=== PATIENT | male | born 1965 | race Caucasian/White ===

== ENCOUNTER 2019-05-27 18:09 | Inpatient (IN) | payer MEDICAID ==
[~2019-05-27] VITALS: Ht 177.8 cm; Wt 83.9 kg
[2019-05-27 18:12] VITALS: BP 140/87
--- NOTE | 2019-05-27 18:27 | NUR ---
PT AMBULATED TO ER BED 04
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
--- NOTE | 2019-05-27 18:33 | NUR ---
DENIES FEVER/CHILLS. TEMP 99.6 TEMPORAL @ TRIAGE. RECHECK ORAL 98.2 AT THIS TIME.
[2019-05-27] MEDS ORDERED: AMPICILLIN/SULBACTAM 3 GM in NACL 0.9% 100 ML IV ONE (18:35)
[2019-05-27] MEDS ORDERED: NACL 0.9% 1,000 ML IV ONE (18:35)
--- NOTE | 2019-05-27 18:36 | NUR ---
DR GOMEZ EVALUATING PT AT BEDSIDE
--- NOTE | 2019-05-27 18:42 | NUR ---
ASSISTANT SCIENTIST AT BEDSIDE
--- NOTE | 2019-05-27 18:42 | NUR ---
EMT AT BEDSIDE FOR EKG
[2019-05-27] MEDS ORDERED: AMPICILLIN/SULBACTAM 3 GM VIAL ONE ×2 (18:44→23:50)
--- NOTE | 2019-05-27 18:47 | NUR ---
XRAY AT BEDSIDE
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
[2019-05-27 19:03] LABS: BASOPHILS # (AUTO) 0.1 K/uL (0.00-0.22); BASOPHILS % (AUTO) 1.3 % (0.0-2.0); EOSINOPHILS # (AUTO) 0.4 K/uL (0-0.4); EOSINOPHILS % (AUTO) 3.9 % (0.0-4.0); HEMATOCRIT 41.8 % (36-52); HEMOGLOBIN 13.9 g/dL (12.0-18.0); LYMPHOCYTES # (AUTO) 1.4 K/uL (2.0-11.5); LYMPHOCYTES % (AUTO) 14.3 % (20.5-51.1); MEAN CORPUSCULAR HEMOGLOBIN 30 pg (27-31); MEAN CORPUSCULAR HGB CONC 33 g/dL (33-37); MEAN CORPUSCULAR VOLUME 88.9 fL (80-94); MONOCYTES # (AUTO) 0.8 K/uL (0.8-1.0); MONOCYTES % (AUTO) 8.6 % (1.7-9.3); NEUTROPHILS % (AUTO) 71.9 % (42.2-75.2); PLATELET COUNT (AUTO) 361 K/uL (140-450); RED CELL DISTRIBUTION WIDTH 14.6 % (11.6-13.7); WHITE BLOOD COUNT (AUTO) 9.7 K/uL (4.8-10.8)
[2019-05-27 19:11] LABS: ANION GAP 12.2 (8-16); CARBON DIOXIDE 30.8 mmol/L (21-32); CREATININE 1.3 mg/dL (0.6-1.3)
--- NOTE | 2019-05-27 19:13 | NUR ---
U/S TECH AT BEDSIDE
--- NOTE | 2019-05-27 20:03 | NUR ---
PT QUIETLY RESTING IN BED, WILL CONTINUE TO MONITOR, SIDERAIL X 1
--- NOTE | 2019-05-27 20:05 | NUR ---
Dr. Santana examining patient.
[2019-05-27] MEDS ORDERED: BACITRACIN OINT 500 UNITS/GM PKT TP ONE ×3 (20:11→20:15)
[2019-05-27] MEDS ORDERED: DOCUSATE SODIUM 100 MG GELCAP PO PRN (20:15)
[2019-05-27] MEDS ORDERED: ACETAMINOPHEN 325 MG TAB PO PRN (20:15)
[2019-05-27] MEDS ORDERED: HYDROcodone/APAP 5/325 MG 1 TAB TAB PO PRN (20:15)
[2019-05-27] MEDS ORDERED: MORPHINE SULFATE 2 MG/ML SYR IVP PRN (20:15)
[2019-05-27] MEDS ORDERED: ONDANSETRON 4 MG/2 ML VIAL IM/IVP PRN (20:15)
[2019-05-27 20:47] LABS: MAGNESIUM 1.6 mg/dL (1.8-2.4); THYROID STIMULATING HORMONE 1.82 uIU/mL (0.34-3.74)
[2019-05-27] MEDS ORDERED: MAGNESIUM OXIDE 400 MG TAB PO SCH (20:50)
[2019-05-27 20:51] LABS: PROTHROMBIN TIME 10.2 secs (10.8-13.4)
[2019-05-27 21:05] VITALS: BP 121/75
--- NOTE | 2019-05-27 21:05 | NUR ---
Patient will be admitted to care of DR BLANCO. Admited to MED SURG. Will go to room 119A. Belongings list completed. Report to MAKAYLA AGUILAR.
--- NOTE | 2019-05-27 21:05 | NUR ---
PATIENT ARRIVED FROM ED VIA WHEELCHAIR. RECEIVED REPORT FROM ER NURSE. PATIENT AWAKE, ALERT, AOX4. AMBULATORY. RESPIRATIONS EVEN AND UNLABORED. SKIN IS WARM AND DRY. WITH OPEN WOUND ON R ELBOW. DRESSING CLEAN, DRY, AND INTACT. WITH IV G 20 ON LEFT FA. VITAL SIGNS WERE STABLE. DENIES ANY PAIN OR DISCOMFORT AT THIS TIME. PATIENT ORIENTED TO ROOM. MRSA NARES SWAB TAKEN. KEPT COMFORTABLE. WILL CONTINUE TO MONITOR.
[2019-05-27] MEDS ORDERED: ALBUTEROL SULFATE/IPRATROPIU 3 ML SOL IH PRN (21:45)
[2019-05-27] MEDS: NACL 0.9% 1,000 ML IV SCH (21:47)
[2019-05-28] VITALS: BP 110/75
[2019-05-28] MEDS: AMPICILLIN/SULBACTAM 3 GM in NACL 0.9% 100 ML IV SCH ×5 (00:01→23:49)
--- NOTE | 2019-05-28 00:11 | NUR ---
ROUNDS DONE. PATIENT IN BED SLEEPING. NO SIGNS OF PAIN OR DISCOMFORT NOTED. IVF INFUSING WELL. CALL LIGHT WITHIN REACH. WILL CONTINUE TO MONITOR.
--- NOTE | 2019-05-28 02:13 | NUR ---
PATIENT IN BED SLEEPING. IVF INFUSING WELL. RESPIRATIONS EVEN AND UNLABORED. NO SIGNS OF PAIN OR DISCOMFORT. KEPT COMFORTABLE. CALL LIGHT WITHIN REACH. WILL CONTINUE TO MONITOR.
--- NOTE | 2019-05-28 04:06 | NUR ---
PATIENT IN BED SLEEPING. RESPIRATIONS EVEN AND UNLABORED. NO SIGNS AND SYMPTOMS OF DISTRESS NOTED. IVF INFUSING WELL. SAFETY MEASURES IN PLACE. CALL LIGHT WITHIN REACH. WILL CONTINUE TO MONITOR.
[2019-05-28] MEDS ORDERED: AMPICILLIN/SULBACTAM 3 GM VIAL ONE (05:16)
--- NOTE | 2019-05-28 05:27 | NUR ---
PATIENT IN BED SLEEPING. RESPIRATIONS EVEN AND UNLABORED. NO S/SX OF DISTRESS NOTED. SCHEDULED MEDICATION GIVEN ORDERED. SAFETY MEASURES IN PLACE. WILL CONTINUE TO MONITOR.
--- NOTE | 2019-05-28 06:06 | NUR ---
PATIENT HAS BEEN SCREENED AND CATEGORIZED MODERATE NUTRITION RISK. PATIENT WILL BE SEEN WITHIN 3-5 DAYS OF ADMISSION. 05/31/19-06/02/19 HAYDE LOVE MS, RDN
--- NOTE | 2019-05-28 07:13 | NUR ---
ENDORSED TO DAY SHIFT NURSE. PATIENT IN STABLE CONDITION.
--- NOTE | 2019-05-28 07:14 | NUR ---
RECEIVED REPORT FROM ASSESSMENT TECHNICIAN NURSE. AOX3, NO C/O PAIN, , NO SOB. WITH IV SITE 20G ON LFA, INTACT AND INFUSING WELL NS AT 60MLS/HR. RIGHT ELBOW DRESSING INTACT UNIVERSAL PRECAUTIONS IN PLACE. PT IN STABLE CONDITION
[2019-05-28 07:25] LABS: BASOPHILS # (AUTO) 0.1 K/uL (0.00-0.22); BASOPHILS % (AUTO) 1.2 % (0.0-2.0); EOSINOPHILS # (AUTO) 0.6 K/uL (0-0.4); EOSINOPHILS % (AUTO) 6.9 % (0.0-4.0); HEMATOCRIT 39.9 % (36-52); HEMOGLOBIN 13.4 g/dL (12.0-18.0); LYMPHOCYTES # (AUTO) 1.7 K/uL (2.0-11.5); LYMPHOCYTES % (AUTO) 20.1 % (20.5-51.1); MEAN CORPUSCULAR HEMOGLOBIN 30 pg (27-31); MEAN CORPUSCULAR HGB CONC 34 g/dL (33-37); MEAN CORPUSCULAR VOLUME 88.7 fL (80-94); MONOCYTES # (AUTO) 0.9 K/uL (0.8-1.0); MONOCYTES % (AUTO) 10.7 % (1.7-9.3); NEUTROPHILS # (AUTO) 5.3 K/uL (1.8-7.7); NEUTROPHILS % (AUTO) 61.1 % (42.2-75.2); PLATELET COUNT (AUTO) 313 K/uL (140-450); RED CELL DISTRIBUTION WIDTH 14.6 % (11.6-13.7); WHITE BLOOD COUNT (AUTO) 8.6 K/uL (4.8-10.8)
[2019-05-28 07:42] LABS: ANION GAP 10.2 (8-16); CARBON DIOXIDE 31.9 mmol/L (21-32); CREATININE 1.2 mg/dL (0.6-1.3); POTASSIUM 4.1 mmol/L (3.5-5.1)
[2019-05-28 08:00] VITALS: BP 123/76
--- NOTE | 2019-05-28 09:06 | NUR ---
DUE MORNING MEDS GIVEN. TOLERATED WELL.
[2019-05-28 09:16] LABS: APPEARANCE,URINE HAZY (CLEAR); BILIRUBIN,URINE NEGATIVE (NEGATIVE); BLOOD, URINE NEGATIVE (NEGATIVE); COLOR,URINE YELLOW (YELLOW); LEUKOCYTE ESTERASE ,URINE NEGATIVE (NEGATIVE); NITRITE, URINE NEGATIVE (NEGATIVE); UGLUCOSE NEGATIVE (NEGATIVE)
[2019-05-28 09:33] LABS: RBC,URINE 0-5 /HPF (0-5); WBC,URINE 0 /HPF (0-5)
[2019-05-28 09:35] LABS: YEAST,URINE Moderate /HPF (None Seen)
[2019-05-28 09:40] LABS: BARBITURATE, URINE NEG ng/ml (NEG <=200); BENZODIAZEPINE, URINE NEG ng/mL (NEG <=200); CANNABINOID, URINE NEG ng/mL (NEG <=50); COCAINE, URINE NEG ng/mL (NEG <=300); OPIATE, URINE NEG ng/mL (NEG <=2000); PHENCYCLIDINE SCREEN,URINE NEG ng/mL (NEG <=25)
--- NOTE | 2019-05-28 10:35 | NUR ---
PT IN BED ASLEEP. NO SOB. IV INFUSING WELL.
--- NOTE | 2019-05-28 11:21 | NUR ---
DUE UNASYN IVPB GIVEN ORDERED. INFUSING WELL. NO ADVERSE REACTIONS NOTED
[2019-05-28] MEDS: NACL 0.9% 1,000 ML IV SCH ×2 (12:55→17:23)
[2019-05-28] MEDS ORDERED: FLUCONAZOLE 100 MG/NS PREMIX 50 ML IV SCH (14:00)
--- NOTE | 2019-05-28 14:00 | NUR ---
WITH NEW ODER FOR DIFLUCAN IV. GIVEN ORDERED. INFUSING WELL.
[2019-05-28 16:00] VITALS: BP 125/52
--- NOTE | 2019-05-28 19:10 | NUR ---
ENDORSED TO AIRLINE STEWARDESS NURSE FOR CONTINUITY OF CARE. IN STABLE CONDITION
--- NOTE | 2019-05-28 19:11 | NUR ---
RECEIVED REPORT FROM DAY SHIFT NURSE. PATIENT IN BED AOX4. DENIES ANY PAIN OR DISTRESS. RESPIRATIONS EVEN AND UNLABORED. IV INTACT AND INFUSING WELL. DRESSING CLEAN AND INTACT. PLAN OF CARE DISCUSSED. PATIENT KEPT COMFORTABLE. WILL CONTINUE TO MONITOR.
--- NOTE | 2019-05-28 20:19 | NUR ---
PATIENT COMPLAINED OF R UPPER EXTREMITY PAIN 6/10. PAIN MEDICATIONS GIVEN ORDERED. SCHEDULED MEDS GIVEN WELL. IVF INFUSING WELL. NO OTHER REQUESTS MADE. WILL CONTINUE TO MONITOR.
--- NOTE | 2019-05-28 22:08 | NUR ---
PATIENT IN BED RESTING. DENIES ANY PAIN OR DISCOMFORT. IVF INFUSING WELL. SAFETY MEASURES IN PLACE. WILL CONTINUE TO MONITOR.
--- NOTE | 2019-05-28 23:51 | NUR ---
PATIENT IN BED RESTING. VITAL SIGNS STABLE. DENIES PAIN AT THIS TIME. SCHEDULED MEDICATIONS GIVEN. RESPIRATIONS EVEN AND UNLABORED. IVF INFUSING WELL. PATIENT KEPT COMFORTABLE. SAFETY MEASURES IN PLACE. WILL CONTINUE TO MONITOR.
[2019-05-29] VITALS: BP 127/84
--- NOTE | 2019-05-29 02:11 | NUR ---
ROUNDS DONE. PATIENT IN BED SLEEPING. NO SIGNS AND SYMPTOMS OF PAIN OR DISTRESS NOTED. RESPIRATIONS EVEN AND UNLABORED. IVF INFUSING WELL. SAFETY MEASURES IN PLACE. WILL CONTINUE TO MONITOR.
[2019-05-29] MEDS: AMPICILLIN/SULBACTAM 3 GM in NACL 0.9% 100 ML IV SCH (05:05)
--- NOTE | 2019-05-29 05:07 | NUR ---
PATIENT IN BED RESTING. SCHEDULED MEDICATIONS GIVEN. NO COMPLAINTS MADE AT THIS TIME. IVF INFUSING WELL. SAFETY MEASURES IN PLACE. WILL CONTINUE TO MONITOR.
[2019-05-29 06:33] LABS: BASOPHILS # (AUTO) 0.1 K/uL (0.00-0.22); BASOPHILS % (AUTO) 1.8 % (0.0-2.0); EOSINOPHILS # (AUTO) 0.6 K/uL (0-0.4); EOSINOPHILS % (AUTO) 8.5 % (0.0-4.0); HEMATOCRIT 39.6 % (36-52); HEMOGLOBIN 13.2 g/dL (12.0-18.0); LYMPHOCYTES # (AUTO) 1.9 K/uL (2.0-11.5); LYMPHOCYTES % (AUTO) 28.3 % (20.5-51.1); MEAN CORPUSCULAR HEMOGLOBIN 30 pg (27-31); MEAN CORPUSCULAR HGB CONC 33 g/dL (33-37); MEAN CORPUSCULAR VOLUME 88.7 fL (80-94); MONOCYTES # (AUTO) 0.6 K/uL (0.8-1.0); MONOCYTES % (AUTO) 9.5 % (1.7-9.3); NEUTROPHILS # (AUTO) 3.5 K/uL (1.8-7.7); NEUTROPHILS % (AUTO) 51.9 % (42.2-75.2); PLATELET COUNT (AUTO) 316 K/uL (140-450); RED BLOOD CELL COUNT(AUTO) 4.46 MIL/uL (4.20-6.10); RED CELL DISTRIBUTION WIDTH 14.1 % (11.6-13.7); WHITE BLOOD COUNT (AUTO) 6.7 K/uL (4.8-10.8)
[2019-05-29 06:37] LABS: MAGNESIUM 1.7 mg/dL (1.8-2.4); PHOSPHORUS 3.4 mg/dL (2.5-4.9)
[2019-05-29 06:41] LABS: ANION GAP 10.2 (8-16); CARBON DIOXIDE 28.8 mmol/L (21-32); CREATININE 1.1 mg/dL (0.6-1.3)
--- NOTE | 2019-05-29 07:12 | NUR ---
ENDORSED TO DAY SHIFT NURSE FOR CONTINUITY OF CARE. PATIENT IN STABLE CONDITION.
--- NOTE | 2019-05-29 07:13 | NUR ---
RECEIVED REPORT FROM FELTING MACHINE OPERATOR HELPER NURSE. AOX3, NO C/O PAIN, , NO SOB. WITH IV SITE 20G ON LFA, INTACT AND INFUSING WELL NS AT 60MLS/HR. RIGHT ELBOW DRESSING INTACT. UNIVERSAL PRECAUTIONS IN PLACE. PT IN STABLE CONDITION.
[2019-05-29 08:00] VITALS: BP 108/63
--- NOTE | 2019-05-29 08:45 | NUR ---
DUE MORNING MEDS GIVEN. TOLERATED WELL
[2019-05-29] MEDS ORDERED: SULF-59 PO (09:53)
[2019-05-29] MEDS ORDERED: MAG SULF 2000 MG/WATER PREMIX 50 ML IV SCH (10:00)
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
--- NOTE | 2019-05-29 10:25 | NUR ---
PATIENT IN BED RESTING. DENIES ANY PAIN OR DISCOMFORT. IVF INFUSING WELL. SAFETY MEASURES IN PLACE. WILL CONTINUE TO MONITOR.
--- NOTE | 2019-05-29 11:00 | NUR ---
DISCHARGE INSTRUCTIONS AND PRESCRIPTION GIVEN TO PATIENT. PT VERBALIZED UNDERSTANDING. NO C/O PAIN, NO SOB, AFEBRILE. ID BAND REMOVED, IV REMOVED WITH LUMEN INTACT. PT'S DAUGHTER WILL PICK HIM UP
--- NOTE | 2019-05-29 11:48 | NUR ---
[employer] An[employer] Note: Basic Screen: Yes High Risk DC Screen Bruce: N/A Pre-Admission Living Arrangements: Other Other: HOMELESS BY CHOICE Prior ADL Independent Current Home Health Name/Tel: N/A Current DME/02 Name/Tel: N/A Current Hospice Name/Tel: N/A Current Dialysis Name/Tel: N/A Healthcare Decision Maker: Patient Advance Directive No Physician Orders for Life Sustaining Treatment Form No Patient/Family Have Educational Needs No Information Taught: Advance Directive Community Resources Person Taught: Patient Teaching Tools: Verbal Factors Affecting Learning: None Participation Level: Refused Evaluation: Verbalizes Understanding Needs Additional Education: No Discipline: Case Mgt/Social Svcs Tentative Discharge Plan/Destination: No Needs Identified Will require assistance post discharge: No Referred to Telephonic Rn: No Tentative Discharge Plan Summary: Patient is a 53-year-old mael admitted for right UE cellulitis. Patient has PMHX of COPD. Patient was admitted from ER. SW met with patient at bedside to verify demographics. Patient reported that he has been homeless for 10 years. Patient stated that it is by choice. SW offered homeless and room and board resources, but patient refused. Patient reports no history of mental health. Patient also reports a history of methamphetamine use. Patient refused substance abuse resources. Patient stated that his plan after discharge is to return to [place], where he lives in [place]. SW stated that weather appropriate clothing and a meal to go is available to him at discharge. No further needs identified. Signature: JASMIN Long Date: May 29, 2019 Time: 11:48
--- NOTE | 2019-05-29 11:50 | NUR ---
PT DISCHARGED IN STABLE CONDITION. PICKED UP BY DAUGHTER VIA PRIVATE VEHICLE
[2019-05-29] MEDS ORDERED: GAUZE TP SCH (13:00)
== END 2019-05-29 11:45 | disposition home or self-care (01) | DRG 383 ==
LOC: MED 18:09 → MTU 20:33 → UNDODISIN 05-29 11:45
PROVIDERS: ADMIT General Practice; ATTEND General Practice
PROC: 3E0234Z Introduction of Serum, Toxoid and Vaccine into Muscle, Percutaneous Approach (ICD-10-PCS; principal; 2019-05-27)
DX: L03.113 Cellulitis of right upper limb (principal); E83.42 Hypomagnesemia; I50.9 Heart failure, unspecified; S42.401A Unspecified fracture of lower end of right humerus, initial encounter for closed fracture; L03.116 Cellulitis of left lower limb; Z23 Encounter for immunization; J44.9 Chronic obstructive pulmonary disease, unspecified; Y08.89XA Assault by other specified means, initial encounter; Y93.89 Activity, other specified; Y92.89 Other specified places as the place of occurrence of the external cause; Y99.8 Other external cause status; F17.200 Nicotine dependence, unspecified, uncomplicated; F15.90 Other stimulant use, unspecified, uncomplicated; Z56.0 Unemployment, unspecified; M79.10 Myalgia, unspecified site; R73.9 Hyperglycemia, unspecified; Z71.6 Tobacco abuse counseling; S51.021A Laceration with foreign body of right elbow, initial encounter
CPT/HCPCS: 36415; 71045; 73060; 73080; 73590; 80048; 80305; 81001; 83036; 83605; 83690; 83735; 83880; 84100; 84443; 84484; 85025; 85610; 85651; 85730; 86140; 87040; 87081; 90471; 90715; 93005; 93971; 96365; 99285; J0295; J1450; J1644; J3475; J7030; Q0092